=== PATIENT | male | born 1950 | race Two or more races ===

== ENCOUNTER → 2024-07-08 | Outpatient (CLI) | payer MEDICARE, MEDICAID, SELFPAY ==
[2024-07-08 15:20] LABS: Prostate Specific Antigen 2.61 ng/mL (0-4.00)
== END | disposition home or self-care (01) ==
LOC: COPL 14:31
PROVIDERS: PCP Licensed Vocational Nurse; Referring Provider Surgery; Visit Provider Surgery
DX: N40.1 Benign prostatic hyperplasia with lower urinary tract symptoms (principal)
CPT/HCPCS: 36415; 84153